=== PATIENT | female | born 2000 | race Caucasian/White ===

== ENCOUNTER 2021-08-22 18:16 | Emergency (ER) | payer OTHER, SELFPAY ==
[2021-08-22 18:20] VITALS: BP 181/107; PULSE 100; RESP 20; TEMP 36.3; O2SAT 99
[2021-08-22] MEDS: KETOROLAC (*BKC) 60 MG/2 ML VIAL IM (19:30)
--- NOTE | 2021-08-22 19:37 | ED.NECK ---
HPI - Neck Pain/Injury General Chief Complaint: Neck Pain/Injury Stated Complaint: neck stiffness Time Seen by Provider: 08/22/21 19:03 Source: patient and RN notes reviewed Mode of arrival: ambulatory Limitations: no limitations History of Present Illness HPI Narrative: This is a 21 year old female with history of scoliosis who presents for evaluation of neck pain. Patient woke up from her sleep at 1 pm today with right neck pain and stiffness. She states when she turns her neck she feels pulling sharp pain to right posterior neck that radiates to her shoulder. She denies fever, chills , nausea, vomiting, weakness, sore throat, shortness of breathing , limb weakness, numbness or tingling. She took ibuprofen for her pain with minimal relief. She has noted that heat does improve pain. She denies any injury as cause of pain. Related Data Allergies Allergy/AdvReac Type Severity Reaction Status Date / Time amoxicillin Allergy Rash Verified 08/22/21 19:29 Review of Systems Review of Systems: All systems reviewed & are unremarkable except as noted in HPI and below PMFSH Past Medical History Medical History (Updated 08/23/21 @ 00:00 by Lora Landa) Scoliosis Surgical History Surgical History (Updated 08/22/21 @ 19:40 by Olivia Bingham MD) History of spinal fusion Social History Social History (Updated 08/22/21 @ 19:40 by Olivia Bingham MD) Smoking status: Never smoker Exam Const: General: no acute distress and alert Orientation/consciousness: patient oriented x3 HENMT: Head: normocephalic and atraumatic Ears: TM's normal bilaterally Face and sinus: sinuses nontender and face symmetric Mouth: Yes Normal oral and palatal mucosa present, Yes lip normal, Yes tongue normal, Yes oropharynx normal and Yes moist mucous membranes Throat: posterior oropharynx normal, tonsils normal and uvula midline Eyes: EOM: EOMs intact bilaterally Neck: Neck: no lymphadenopathy, no meningeal signs, trachea midline and no anterior neck swelling Lymphatic: no lymphadenopathy noted Resp: Effort & Inspection: normal respiratory effort and no retractions Auscultation: clear to auscultation bilaterally Cardio: Rate: regular rate Rhythm: regular rhythm Heart sounds: no murmurs Back/Spine/Pelvis: Cervical Spine: cervical muscular tenderness, pain with cervical ROM, cervical spasm (right ) and No Cervical spine tenderness Skin: General skin exam: normal color Rashes: no rashes Neuro: General: patient oriented x3 and moves all extremities Psych: Mental Status: mental status grossly normal Affect: normal affect Course Reevaluation(s) Reevaluation #1: This is appears to be pain related to muscle spasm. PAtient understands plan to discharge with muscle relaxers. Date: 08/22/21 Time: 19:43 Vital Signs Vital signs: Vital Signs Temperature 97.3 F L 08/22/21 18:20 Pulse Rate 100 08/22/21 18:20 Respiratory Rate 20 08/22/21 18:20 Blood Pressure 181/107 H 08/22/21 18:20 Pulse Oximetry 99 08/22/21 18:20 Temperature 97.3 F L 08/22/21 18:20 Pulse Rate 100 08/22/21 18:20 Respiratory Rate 20 08/22/21 18:20 Blood Pressure 181/107 H 08/22/21 18:20 Pulse Oximetry 99 08/22/21 18:20 Discharge Plan Discharge Clinical Impression: Torticollis Patient Disposition: Home, Self-Care Condition: Stable Instructions: Spasmodic Torticollis (ED), Muscle Spasm (ED) Additional Instructions: Follow up with your primary care physician if symptoms not improving after 48 hours. Return if you develop fever, limb weakness or numbness, or vomiting. Prescriptions: New naproxen [Naprosyn] 500 mg tablet 500 mg PO BID PRN (Reason: pain) Qty: 14 RF: 0 cyclobenzaprine 10 mg tablet 10 mg PO TID PRN (Reason: muscle spasm) Qty: 20 RF: 0 Follow-up/Referrals: PHYSICIAN NOT ON STAFF,NONSTAFF [Primary Care Provider] -
== END 2021-08-22 19:57 | disposition home or self-care (01) ==
PROVIDERS: Emergency Provider General Practice
DX: M43.6 Torticollis (principal)
CPT/HCPCS: 96372; 99283; J1885

== ENCOUNTER 2024-11-10 11:49 | Outpatient (CLI) | payer OTHER, SELFPAY ==
--- NOTE | ~2024-11-10 | XR_ITS ---
EXAM/ PROCEDURE: XR sacroiliac joints min 3V - 11/10/2024 11:55 CDT HISTORY: 24 years old Female with Multiple joint pain COMPARISON: None available TECHNIQUE: Three view(s) FINDINGS/ IMPRESSION: There are no fractures or dislocations.Joint spaces are within normal limits Reviewed, dictated and finalized at location A.
--- NOTE | ~2024-11-10 | XR_ITS ---
EXAM/ PROCEDURE: XR foot RT 2V - 11/10/2024 11:55 CDT HISTORY: 24 years old Female with Multiple joint pain COMPARISON: None available TECHNIQUE: Two view(s) FINDINGS/ IMPRESSION: There are no fractures or dislocations.Joint spaces are within normal limits Reviewed, dictated and finalized at location A.
--- NOTE | ~2024-11-10 | XR_ITS ---
EXAM/ PROCEDURE: XR ankle RT 2V - 11/10/2024 11:55 CDT HISTORY: 24 years old Female with Multiple joint pain COMPARISON: None available TECHNIQUE: Two view(s) FINDINGS/ IMPRESSION: There are no fractures or dislocations.Joint spaces are within normal limits Reviewed, dictated and finalized at location A.
--- NOTE | ~2024-11-10 | XR_ITS ---
EXAM/ PROCEDURE: XR wrist LT 2V - 11/10/2024 11:55 CDT HISTORY: 24 years old Female with Multiple joint pain COMPARISON: None available TECHNIQUE: Two view(s) FINDINGS/ IMPRESSION: There are no fractures or dislocations.Joint spaces are within normal limits Reviewed, dictated and finalized at location A.
--- NOTE | ~2024-11-10 | XR_ITS ---
EXAM/ PROCEDURE: XR wrist RT 2V - 11/10/2024 11:55 CDT HISTORY: 24 years old Female with Multiple joint pain COMPARISON: None available TECHNIQUE: Three view(s) FINDINGS/ IMPRESSION: There are no fractures or dislocations.Joint spaces are within normal limits Reviewed, dictated and finalized at location A.
--- NOTE | ~2024-11-10 | XR_ITS ---
EXAM/ PROCEDURE: XR ankle LT 2V - 11/10/2024 11:55 CDT HISTORY: 24 years old Female with Multiple joint pain COMPARISON: None available TECHNIQUE: Two view(s) FINDINGS/ IMPRESSION: There are no fractures or dislocations.Joint spaces are within normal limits Reviewed, dictated and finalized at location A.
--- NOTE | ~2024-11-10 | XR_ITS ---
EXAM/ PROCEDURE: XR foot LT 2V - 11/10/2024 11:55 CDT HISTORY: 24 years old Female with Multiple joint pain COMPARISON: None available TECHNIQUE: Two view(s) FINDINGS/ IMPRESSION: There are no fractures or dislocations.Joint spaces are within normal limits Reviewed, dictated and finalized at location A.
--- NOTE | ~2024-11-10 | XR_ITS ---
EXAM/ PROCEDURE: XR hand BI arthritis min 3V - 11/10/2024 11:55 CDT HISTORY: 24 years old Female with Multiple joint pain COMPARISON: None available TECHNIQUE: 5 view(s) FINDINGS/ IMPRESSION: There are no fractures or dislocations.Joint spaces are within normal limits Reviewed, dictated and finalized at location A.
== END 2024-11-10 11:50 | disposition home or self-care (01) ==
LOC: MICIMG 11:53
PROVIDERS: PCP Nurse Practitioner; Visit Provider Nurse Practitioner
DX: M25.532 Pain in left wrist (principal); M25.531 Pain in right wrist; M53.3 Sacrococcygeal disorders, not elsewhere classified; M25.571 Pain in right ankle and joints of right foot; M25.572 Pain in left ankle and joints of left foot; M79.671 Pain in right foot; M79.672 Pain in left foot; M25.542 Pain in joints of left hand; M25.541 Pain in joints of right hand; R53.81 Other malaise
CPT/HCPCS: 72202; 73100; 73130; 73600; 73620